=== PATIENT | female | born 1970 | race Two or more races ===

== ENCOUNTER 2021-01-27 21:11 | Emergency (ER) | payer MEDICAID ==
[~2021-01-27] VITALS: Ht 154.9 cm; Wt 68.0 kg
[2021-01-27 21:15] VITALS: BP_SYST 110
[2021-01-28] MEDS ORDERED: LIDOCAINE 1% 10 MG/ML, 20 ML MDV INJ ONE (00:45)
[2021-01-28] MEDS ORDERED: BACITRACIN 1 GM OINT TP ONE ×2 (01:00→01:13)
[2021-01-28] MEDS ORDERED: NAPR-688 PO (01:09)
[2021-01-28] MEDS ORDERED: ACET1TAB23 PO (01:09)
[2021-01-28] MEDS ORDERED: CEPH500C2 PO (01:09)
[2021-01-28] MEDS ORDERED: cefTRIAXone 1 GM in LIDOCAINE 1%, 20 ML MDV 2.1 ML IM ONE (01:15)
[2021-01-28] MEDS ORDERED: IBUPROFEN 600 MG TABLET PO ONE (01:15)
[2021-01-28] MEDS ORDERED: DIPH-TET-PERTUS Vaccine 0.5 ML VIAL (ADACEL) I.M. ONE (01:15)
[2021-01-28 01:30] VITALS: BP_SYST 129
== END 2021-01-28 01:30 | disposition home or self-care (01) ==
LOC: SED 21:11
DX: L03.011 Cellulitis of right finger (principal); Z79.899 Other long term (current) drug therapy
CPT/HCPCS: 10060; 90471; 90715; 96372; 99284; J0696; J2001